=== PATIENT | female | born 1975 | race Caucasian/White ===

== ENCOUNTER 2016-12-28 03:01 | Emergency (ER) | payer OTHER ==
[~2016-12-28] VITALS: Ht 162.6 cm; Wt 54.5 kg
[~2016-12-28 03:01] MED LIST: LEVO25TA50
[2016-12-28 03:04] VITALS: Ht 162.6 cm; Wt 54.5 kg
[2016-12-28] MEDS ORDERED: NPH10OT RIGHT EAR (03:24)
--- NOTE | 2016-12-28 03:34 | ERD ---
ER Documentation Chief Complaint Date/Time DATE: 12/28/16 TIME: 03:29 Chief Complaint states she put garlic into RT ear because she had an earache, now its stuck HPI 41-year-old female presents here in emergency department for a garlic left into the right ear, patient tried to put a Garlic in the right ear to help with the pain in the ear will Garlic gets stuck and now she could not get it out of her ear. Patient is complaining of pain sharp pain 6/and scale. Patient denies any discharge coming from the ear. Patient denies any fever or chills. ROS All systems reviewed and are negative except as per history of present illness. Medications Home Meds Active Scripts Hydrocodone/Acetaminophen (Houghton 5-325 Tablet) 1 Each Tablet, 1 TAB PO Q6H Y for SEVERE PAIN LEVEL 7-10, #20 TAB Prov:RILEY COLEMAN NP 12/28/16 Prednisone* (Prednisone*) 50 Mg Tablet, 50 MG PO DAILY for 5 Days, TAB Prov:RILEY COLEMAN NP 12/28/16 Ciprofloxacin Hcl* (Ciprofloxacin Hcl*) 500 Mg Tablet, 500 MG PO BID for 10 Days , TAB Prov:RILEY COLEMAN NP 12/28/16 Neomycin/Polymyxin/Hydrocort* (Cortisporin* Otic) 10 Ml Susp, 4 DROP RIGHT EAR QID for 7 Days, EA Prov:RILEY COLEMAN NP 12/28/16 Reported Medications Levothyroxine Sodium* (Levoxyl*) 25 Mcg Tablet 08/14/11 Allergies Allergies: Coded Allergies: No Known Allergy (Unverified , 12/28/16) PMhx/Soc Medical and Surgical Hx: pt denies Medical Hx, pt denies Surgical Hx History of Surgery: No Anesthesia Reaction: No Hx Neurological Disorder: No Hx Respiratory Disorders: No Hx Cardiac Disorders: No Hx Psychiatric Problems: No Hx Miscellaneous Medical Probl: No Hx Alcohol Use: Yes Hx Substance Use: No Hx Tobacco Use: Yes Smoking Status: Current some day smoker FmHx Family History: No coronary disease, No diabetes, No other Physical Exam Vitals Vital Signs Date Time Temp Pulse Resp B/P Pulse Ox O2 Delivery O2 Flow Rate FiO2 12/28/16 03:04 97.8 78 20 124/76 99 Physical Exam GENERAL: The patient is well developed and appropriate for usual state of health, in no apparent distress. HEENT: Atraumatic. Ears: Normal tympanic membrane, no erythema or bulging. Noted right ear canal noted to have right leg in the area. Erythema noted in either ear canal. No ear discharge noted. Left ear canal is normal. Nose: normal nasal turbinates, no erythema or swelling. Normal nasal discharge. Throat : oropharynx clear. No tonsillar swelling or tonsillar exudates. No lymphadenopathy. CHEST: Clear to auscultation bilaterally. There are no rales, wheezes or rhonchi. HEART: Regular rate and rhythm. No murmurs, clicks, rubs or gallops. No S3 or S4. ABDOMEN: Soft, nontender and nondistended. Good bowel sounds. No rebound or guarding. No gross peritonitis. No gross organomegaly or masses. No Reinoso sign or McBurney point tenderness. BACK: No midline or flank tenderness. EXTREMITIES: Equal pulses bilaterally. There is no peripheral clubbing, cyanosis or edema. No focal swelling or erythema. Full range of motion. Grossly neurovascularly intact. NEURO: Alert and oriented. Cranial nerves 2-12 intact. Motor strength in all 4 extremities with 5/5 strength. Sensation grossly intact. Normal speech and gait. SKIN: There is no apparent rash or petechia. The skin is warm and dry. HEMATOLOGIC AND LYMPHATIC: There is no evidence of excessive bruising or lymphedema. No gross cervical, axillary, or inguinal lymphadenopathy. Results 24 hrs Procedure note: After patient's verbal consent, the right ear canal is lavage using diluted hydrogen peroxide with normal saline. After procedure, patient left ear was cleaned, the garlic foreign body was tried to be removed using tweezer, only a part of the garlic was removed, the rest of the garlic was left in place, ear canal noted to be swollen. Patient tolerated procedure well. No TM perforation noted. No cerumen impaction noted afterwards. Procedures/MDM Medical decision making: Patient symptoms most likely is consistent with foreign body in the ear, patient also appeared chemical reaction from the garlic. Notice inflammation of the ear canal, unable to completely remove the garlic. Patient is advised to see ENT specialist in the morning for possible removal. No tympanic membrane perforation, no otitis media noted. Perfusion was given for Corticosporin to prevent infection of the affected area Cipro oral, Houghton, prednisone ibuprofen. Patient was advised to avoid using garlic to put into the ear. Patient is advised to follow-up with primary care doctor in 2-3 days for reevaluation of symptoms. Patient was advised to return to emergency department for any worsening symptoms. Disposition: Home. Stable. Departure Diagnosis: Primary Impression: Ear foreign body Encounter type: initial encounter Laterality: right Qualified Code: T16.1XXA - Ear foreign body, right, initial encounter Condition: Stable Patient Instructions: Foreign Body, Ear Canal (Removed) RILEY COLEMAN NP Dec 28, 2016 03:34
[2016-12-28] MEDS ORDERED: PRED50TA PO (04:02)
[2016-12-28] MEDS ORDERED: CIPR500T4 PO (04:02)
[2016-12-28] MEDS ORDERED: HYDR-906 PO (04:04)
[2016-12-28] MEDS ORDERED: IBUP-1542 PO (04:06)
== END 2016-12-28 04:05 | disposition left against medical advice (07) ==
LOC: FTE 03:01
DX: T16.1XXA Foreign body in right ear, initial encounter (principal); F17.210 Nicotine dependence, cigarettes, uncomplicated; X58.XXXA Exposure to other specified factors, initial encounter; Y92.9 Unspecified place or not applicable
CPT/HCPCS: 69200; Z7502